=== PATIENT | female | born 1985 | race African-American/Black ===

== ENCOUNTER 2018-05-27 16:31 | Emergency (ER) | payer OTHER ==
[~2018-05-27] VITALS: Ht 167.6 cm; Wt 58.9 kg
[2018-05-27 16:56] VITALS: BP 133/83
[2018-05-27] MEDS ORDERED: BUPIVACAINE 0.25% INFIL ONE (17:30)
[2018-05-27] MEDS ORDERED: LIDOCAINE 2%, 20ML SQ ONE (17:30)
[2018-05-27] MEDS ORDERED: LIDOCAINE-MPF 2% ,5ML ONE (17:36)
[2018-05-27] MEDS ORDERED: KETOROLAC 30 MG/1 ML ONE (19:40)
[2018-05-27] MEDS ORDERED: KETOROLAC 30 MG/1 ML IM ONE (20:00)
== END 2018-05-27 20:03 | disposition home or self-care (01) ==
LOC: ED 19:35
DX: S62.665B Nondisplaced fracture of distal phalanx of left ring finger, initial encounter for open fracture (principal); S61.313A Laceration without foreign body of left middle finger with damage to nail, initial encounter; W23.0XXA Caught, crushed, jammed, or pinched between moving objects, initial encounter; Y93.89 Activity, other specified; Y92.009 Unspecified place in unspecified non-institutional (private) residence as the place of occurrence of the external cause; Y99.8 Other external cause status
CPT/HCPCS: 12042; 73140; 96372; 99285; J1885; J3490

== ENCOUNTER 2018-06-02 12:30 | Emergency (ER) | payer OTHER ==
[~2018-06-02] VITALS: Ht 167.6 cm; Wt 57.0 kg
[2018-06-02 12:38] VITALS: BP 105/68
[2018-06-02] MEDS ORDERED: BACITRACIN ZINC OINT 500U/GM, 0.9 GM ONE ×2 (13:31→13:32)
== END 2018-06-02 13:50 | disposition home or self-care (01) ==
LOC: ED 13:44
DX: S91.115D Laceration without foreign body of left lesser toe(s) without damage to nail, subsequent encounter (principal); W29.0XXD Contact with powered kitchen appliance, subsequent encounter
CPT/HCPCS: 99283